=== PATIENT | female | born 1985 | race Caucasian/White ===

== ENCOUNTER 2020-05-13 10:28 | Emergency (ER) | payer BC ==
[2020-05-13] MEDS ORDERED: Ketorolac 60 MG/2 ML SDV IM ONE (10:42)
[2020-05-13] MEDS ORDERED: Take Home: Cyclobenzaprine 10 MG Tab, 4 Tab Pack PO ONE (10:43)
[2020-05-13] MEDS ORDERED: Take Home: Ketorolac 10 MG Tab, 4 Tab Pack PO ONE (10:43)
--- NOTE | 2020-05-13 10:51 | EDM.PDOC ---
ED HPI GENERAL MEDICAL PROBLEM - General Chief Complaint: Back Pain or Injury Stated Complaint: BACK PAIN Time Seen by Provider: 05/13/20 10:35 Source of Information: Reports: Patient History Limitations: Reports: No Limitations - History of Present Illness INITIAL COMMENTS - FREE TEXT/NARRATIVE: Patient presents to ER with complaints of low back pain. 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 Had a hard time standing up when it occurred and has continued to have discomfort since that time. States pain radiates across her low back, no radiation down her legs. No weakness. She did finish out her shift there but had difficulty standing and walking. Last took ibuprofen at 2 am to help her sleep, did not help much. Had hurt her back 3 years ago while at work, was treated but has been doing well since. 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 ED ROS GENERAL - Review of Systems Review Of Systems: See Below Constitutional: Denies: Weakness, Fatigue HEENT: Reports: No Symptoms Respiratory: Reports: No Symptoms Cardiovascular: Reports: No Symptoms Endocrine: Reports: No Symptoms GI/Abdominal: Reports: No Symptoms Musculoskeletal: Reports: Back Pain Skin: Reports: No Symptoms Neurological: Reports: Difficulty Walking ED EXAM,LOWER BACK PAIN/INJURY - Physical Exam Exam: See Below Exam Limited By: No Limitations General Appearance: Alert, WD/WN, Mild Distress Respiratory/Chest: No Respiratory Distress, Lungs Clear, Normal Breath Sounds Cardiovascular: Regular Rate, Rhythm Back Exam: Normal Inspection, Decreased Range of Motion (patient has difficulty with flexion and extension as well as rotation of her lumbar spine. She is tender to the lower lumbar spine and paraspinal muscles on both sides. No leg weakness noted. ), Muscle Spasm, Paraspinal Tenderness, Vertebral Tenderness Course - Orders/Labs/Meds Meds: Medications Discontinued Medications Generic Name Dose Route Start Last Admin Trade Name Freq PRN Reason Stop Dose Admin Cyclobenzaprine HCl 1 packet 05/13/20 10:43 Take Home: Cyclobenzaprine 10 Mg, 4 Tab Pack PO 05/13/20 10:44 ONETIME ONE Ketorolac Tromethamine 60 mg 05/13/20 10:42 Toradol IM 05/13/20 10:43 ONETIME ONE Ketorolac Tromethamine 1 packet 05/13/20 10:43 Take Home: Ketorolac 10 Mg, 4 Tab Pack PO 05/13/20 10:44 ONETIME ONE Orphenadrine Citrate 60 mg 05/13/20 10:42 Norflex IM 05/13/20 10:43 ONETIME ONE Departure - Departure Time of Disposition: 10:54 Disposition: Home, Self-Care 01 Condition: Fair Clinical Impression: Low back pain Qualifiers: Chronicity: acute Back pain laterality: bilateral Sciatica presence: without sciatica Qualified Code(s): M54.5 - Low back pain - Discharge Information *PRESCRIPTION DRUG MONITORING PROGRAM REVIEWED*: No *COPY OF PRESCRIPTION DRUG MONITORING REPORT IN PATIENT APPLE: No Instructions: Acute Back Pain, Adult Forms: ED Department Discharge Additional Instructions: 1. Rest 2. Ice or heat to low back 3. Flexeril 10 mg every 8 hours as needed for muscle spasms 4. Toradol 10 mg every 6 hours as needed for pain and inflammation 5. Follow up with provider on Thursday to determine work restrictions. No work Thursday and Thursday. 6. Call your primary care provider for questions or concerns.
== END 2020-05-13 11:05 | disposition home or self-care (01) ==
LOC: VM.ED 10:28
DX: M54.5 Low back pain (principal)
CPT/HCPCS: 96372; 99283; A9270-GY; J1885; J2360